=== PATIENT | male | born 1960 | race Caucasian/White ===

== ENCOUNTER 2017-09-23 01:45 | Emergency (ER) | payer OTHER ==
[~2017-09-23] VITALS: Ht 167.6 cm; Wt 102.0 kg
[~2017-09-23 01:45] MED LIST: AMLO5 PO; ASPI81TA82 PO; CLOP75 PO; DOCU1CAP39 PO; FURO1TAB93 PO; GARL1500 PO; JANU100T PO; LOVA10TA PO; METF500 PO; OMEG100037; PACE200T4 PO; PERC5TAB12 PO; POTA20IN3 PO
[2017-09-23 01:47] VITALS: BP 139/79; PULSE 88; RESP 18; TEMP 99.3; O2SAT 98
[2017-09-23] MEDS ORDERED: SODIUM CHLOR 0.9% 1000 ML INJ 1,000 ML IV SCH (02:16)
[2017-09-23] MEDS ORDERED: ONDANSETRON HCL 4 MG/2 ML VIAL IVP ONE (02:30)
[2017-09-23] MEDS ORDERED: SODIUM CHLORIDE 0.9% FLUSH 10 ML FLUSH IV FLUSH PRN (02:30)
[2017-09-23] MEDS ORDERED: FAMOTIDINE 20 MG/2 ML VIAL IV PUSH ONE (02:30)
[2017-09-23 02:49] LABS: AUTOMATED NEUTROPHIL # 6.7 TH/MM3 (1.8-7.7); BASOPHIL % 0.2 % (0.0-2.0); EOSINOPHIL % 0.1 % (0.0-4.0); HEMATOCRIT 29.1 % (39.0-51.0); HEMOGLOBIN 9.7 GM/DL (13.0-17.0); LYMPH % 8.6 % (9.0-44.0); LYMPHOCYTE # 0.7 TH/MM3 (1.0-4.8); MEAN CORPUSCULAR HEMOGLOBIN 26.7 PG (27.0-34.0); MEAN CORPUSCULAR HGB CONC 33.3 % (32.0-36.0); MONO % 8.2 % (0.0-8.0); MONOCYTE # 0.7 TH/MM3 (0-0.9); NEUT % 82.9 % (16.0-70.0); PLATELET COUNT 299 TH/MM3 (150-450); RED BLOOD COUNT 3.64 MIL/MM3 (4.50-5.90); RED CELL DISTRIBUTION WIDTH 15.6 % (11.6-17.2); WHITE BLOOD COUNT 8.1 TH/MM3 (4.0-11.0)
[2017-09-23 02:54] VITALS: RESP 16; O2SAT 98
[2017-09-23 03:01] LABS: ALBUMIN 2.7 GM/DL (3.4-5.0); ALT (GPT) 23 U/L (12-78); AST (GOT) 20 U/L (15-37); BICARBONATE 18.1 MEQ/L (21.0-32.0); BLOOD UREA NITROGEN 9 MG/DL (7-18); CALCIUM 8.9 MG/DL (8.5-10.1); CHLORIDE 96 MEQ/L (98-107); CREATININE 0.65 MG/DL (0.60-1.30); GLOMERULAR FILTRATION RATE 126 ML/MIN (>89); GLUCOSE,RANDOM 114 MG/DL (74-106); LIPASE 217 U/L (73-393); SODIUM (NA) 133 MEQ/L (136-145)
[2017-09-23 03:03] LABS: ALKALINE PHOSPHATASE 110 U/L (45-117); TOTAL PROTEIN 7.6 GM/DL (6.4-8.2)
[2017-09-23] MEDS ORDERED: ALUMINUM/MAGNESIUM/SIMETH 30 ML CUP PO ONE (03:15)
[2017-09-23] MEDS ORDERED: LIDOCAINE VISCOUS 2% SOLN 15 ML UDC PO ONE (03:15)
[2017-09-23 03:34] LABS: AMORPHOUS SEDIMENT, URINE RARE; BILIRUBIN, URINE NEG (NEG); BLOOD, URINE LARGE (NEG); GLUCOSE,URINE NEG (NEG); KETONE, URINE 150 mg/dL (NEG); MUCUS URINE FEW /lpf (OCC); NITRITE,URINE NEG (NEG); PH, URINE 5.5 (5.0-8.5); URINE COLOR RED (YELLW/STRAW); URINE LEUKOCYTE ESTERASE SMALL (NEG)
[2017-09-23 03:50] LABS: TROPONIN I 0.03 NG/ML (0.02-0.05)
[2017-09-23] MEDS ORDERED: LEVOFLOXACIN 750 MG PREMIX INJ 150 ML IV ONE (04:00)
--- NOTE | 2017-09-23 04:08 | RADRPT ---
EXAM DATE/TIME: 09/23/2017 03:34 [facility] COMPARISON: CHEST SINGLE AP, November 28, 2015, 3:25. INDICATIONS : Short of breath. MEDICAL HISTORY : None. SURGICAL HISTORY : CABG. ENCOUNTER: Initial ACUITY: 1 day PAIN SCORE: 4/10 LOCATION: Bilateral chest FINDINGS: A single view of the chest demonstrates the lungs to be symmetrically aerated without evidence of mas s, infiltrate or effusion. Linear scarring within the left base. The cardiomediastinal contours are u nremarkable. Osseous structures are intact. Median sternotomy wires. CONCLUSION: No acute disease. Papi Membreno Jr., MD on September 23, 2017 at 4:06 Board Certified Radiologist. This report was verified electronically.
--- NOTE | 2017-09-23 04:12 | RADRPT ---
EXAM DATE/TIME: 09/23/2017 03:37 [facility] COMPARISON: CT PULMONARY ANGIOGRAM, December 02, 2015, 3:28. INDICATIONS : Hematuria. Evaluate for renal stone. ORAL CONTRAST: No oral contrast ingested. RADIATION DOSE: 18.97 CTDIvol (mGy) MEDICAL HISTORY : Cardiovascular disease. Hyperthyroidism. Renal cell carcinoma. SURGICAL HISTORY : Nephrectomy, left. ENCOUNTER: Initial ACUITY: 1 day PAIN SCALE: 9/10 LOCATION: Bilateral abdomen TECHNIQUE: Volumetric scanning of the abdomen and pelvis was performed. Using automated exposure control and ad justment of the mA and/or kV according to patient size, radiation dose was kept as low as reasonably achievable to obtain optimal diagnostic quality images. DICOM format image data is available electro nically for review and comparison. FINDINGS: LOWER LUNGS: The visualized lower lungs are clear. LIVER: Homogeneous density without lesion. There is no dilation of the biliary tree. No calcified gallston es. SPLEEN: Spleen is enlarged measuring 14.8 cm. There is a area of low density change partially visualized with in the cephalad portion of the spleen measuring 8.6 cm. Both are new from the prior study. PANCREAS: Within normal limits. KIDNEYS: Left kidney is surgically absent. There is compensatory hypertrophy of the right kidney. No mass, sto ne, or hydronephrosis. ADRENAL GLANDS: Within normal limits. VASCULAR: There is no aortic aneurysm. BOWEL/MESENTERY: The stomach, small bowel, and colon demonstrate no acute abnormality. There is no free intraperitone al air or fluid. ABDOMINAL WALL: Within normal limits. RETROPERITONEUM: There is no lymphadenopathy. BLADDER: The urinary bladder is only partially distended. There is circumferential wall thickening observed mo re pronounced within the anterior fundus. REPRODUCTIVE: Within normal limits. INGUINAL: There is no lymphadenopathy or hernia. MUSCULOSKELETAL: There is cortical thickening and mild bony expansion involving the left hemipelvis. No cortical destr uction. Degenerative changes of the lumbar spine. CONCLUSION: 1. Splenomegaly with 8.6 cm low-density lesion involving the spleen. Both are new from the prior exam . 2. Prior left nephrectomy. 3. Paget's disease involving the left hemipelvis. Papi Membreno Jr., MD on September 23, 2017 at 4:06 Board Certified Radiologist. This report was verified electronically.
--- NOTE | 2017-09-23 05:24 | PD ---
HPI . Abdominal pain Chief Complaint: Abdominal Pain Time Seen by Provider: 02:16 Travel History International Travel<30 days: No Contact w/Intl Traveler<30days: No Traveled to known affect area: No History of Present Illness HPI 57-year-old male notes intermittent abdominal pain nausea and vomiting over the past 2 months, presents with having copious vomiting, epigastric abdominal pain. Patient denies any diagnosed previous history of same. Patient notes the initial antecedent may have been food poisoning, has had recurrent viral type infections, including possible influenza during that two-month intermittent coarse. Patient denies any current hematemesis, melena or hematochezia. Patient does note having some darker urine over the past several days. 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 Patient has otherwise been followed by nephrology and has had normal renal function throughout his life. Patient was in to see his PMD within the past month, had a negative workup including lab examinations reviewing patient's renal function and liver function. Patient has no slipping and travel history, no idiosyncratic food intake, has not had any ingestion of stream or catchment water has not had any antibiotic usage, has not had any visitation of anyone in a hospital or correction setting PFSH Past Medical History Narrative Medical Past medical history reviewed Cancer: Yes (kidney) Cardiovascular Problems: Yes (AORTIC SURGERY) Chest Pain: No Diabetes: Yes Patient Takes Glucophage: No (09/22/2017 0900) Diminished Hearing: No Endocrine: No Gastrointestinal Disorders: No Genitourinary: Yes (hx of wilms tumor disease) Hepatitis: No Hiatal Hernia: No Hypertension: Yes Immune Disorder: No Medical other: Yes ("paracite") Musculoskeletal: Yes (cervical compression with numbness and tingling left arm arthritis) Neurologic: No Psychiatric: No Reproductive: No Respiratory: No Thyroid Disease: No Tetanus Vaccination: Unknown Influenza Vaccination: No Past Surgical History AICD: No Cardiac Surgery: Yes (cardiac cath aug 2015) Genitourinary Surgery: Yes (left nephrectomy) Joint Replacement: No Oral Surgery: Yes (t and a) Pacemaker: No Tonsillectomy: Yes (T&A) Other Surgery: Yes Social History Alcohol Use: Yes (beer daily) Tobacco Use: No Substance Use: No Allergies-Medications (Allergen,Severity, Reaction): Coded Allergies: Penicillins (Verified Allergy, Severe, 09/23/17) pt states "I almost as a child" ibuprofen (Unverified Allergy, Severe, kidney disease only one kidney, ) sulfacetamide (Verified Allergy, Unknown, 09/23/17) pt states "I don't know it happened as a child" Reported Meds & Prescriptions Reported Meds & Active Scripts Active Percocet 5-325 mg (Oxycodone/Acetaminophen) Oxycodone 5/325 Acetaminophen Tab 1 Tab PO Q4-6H PRN Pacerone 200 mg (Amiodarone HCl) 200 Mg Tab 2 Tab PO BID Potassium Chloride CR 20 meq 20 Meq Tab 1 Tab PO BID take one pill twice a day with lasix x 2 weeks, then daily with lasix, until prescrition completed Lasix (Furosemide) 40 Mg Tab 40 Mg PO BID take lasix 40mg twice a day for 2 weeks, then take one tab daily until prescrition completed must also take with potassium Colace 100 Mg Cap (Docusate Sodium) 100 Mg Cap 100 Mg PO DAILY Plavix (Clopidogrel Bisulfate) 75 Mg Tab 75 Mg PO DAILY Norvasc (Amlodipine Besylate) 5 Mg Tab 5 Mg PO DAILY Reported Glucophage 500 mg (Metformin HCl) 500 Mg Tab 500 Mg PO TID Lovastatin 10 Mg Tab 10 Mg PO BID Januvia (Sitagliptin Phosphate) 100 Mg Tab 100 Mg PO DAILY Garlic 1,500 Mg Cap 1,500 Mg PO stopped 10/15/15 Fish Oil 1000 mg ([place]-3 Fatty Acids) 1 Cap Cap stopped 10/15/15 Aspir-81 (Aspirin) 81 Mg Tab 81 Mg PO DAILY stopped oct 15 Narrative Medication Allergies and medications reviewed Review of Systems Except as stated in HPI: all other systems reviewed are Neg General / Constitutional: No: Fever Eyes: No: Visual changes HENT: No: Headaches Cardiovascular: No: Chest Pain or Discomfort Respiratory: No: Shortness of Breath Gastrointestinal: Positive: Nausea, Vomiting, Abdominal Pain, No: Diarrhea, Hematemesis, Hematochezia Genitourinary: No: Dysuria Musculoskeletal: No: Pain Skin: No Rash Neurologic: No: Weakness Psychiatric: No: Depression Endocrine: No: Polydipsia Hematologic/Lymphatic: No: Easy Bruising Physical Exam Narrative GENERAL: Patient is awake and alert, actively vomiting at presentation, in mild distress and uncomfortable SKIN: Warm and dry. Color is slightly pale/sallow, no diaphoresis no cyanosis HEAD: Atraumatic. Normocephalic. EYES: Pupils equal and round. No scleral icterus. No injection or drainage. EOMI ENT: No nasal bleeding or discharge. Mucous membranes pink and moist. Uvula midline no lesions voice normal NECK: Trachea midline. No JVD. Supple full range of motion CARDIOVASCULAR: Regular rate and rhythm. S1-S2 no murmurs or gallops RESPIRATORY: No accessory muscle use. Clear to auscultation. Breath sounds equal bilaterally. GASTROINTESTINAL: Abdomen soft, non-tender, nondistended. Hepatic and splenic margins not palpable. MUSCULOSKELETAL: Extremities without clubbing, cyanosis, or edema. No obvious deformities. NEUROLOGICAL: Awake and alert. No obvious cranial nerve deficits. Motor grossly within normal limits. Five out of 5 muscle strength in the arms and legs. Normal speech. PSYCHIATRIC: Appropriate mood and affect; insight and judgment normal. Data Data Last Documented VS Vital Signs Date Time Temp Pulse Resp B/P (MAP) Pulse Ox O2 Delivery O2 Flow Rate FiO2 09/23/17 02:54 16 98 Nasal Cannula 09/23/17 01:47 99.3 88 Orders Orders Complete Blood Count With Diff (09/23/17 02:16) Comprehensive Metabolic Panel (09/23/17 02:16) Lipase (09/23/17 02:16) Urinalysis - C+S If Indicated (09/23/17 02:16) Iv Access Insert/Monitor (09/23/17 02:16) Ecg Monitoring (09/23/17 02:16) Oximetry (09/23/17 02:16) Ondansetron Inj (Zofran Inj) (09/23/17 02:30) Sodium Chlor 0.9% 1000 Ml Inj (Ns 1000 M (09/23/17 02:16) Sodium Chloride 0.9% Flush (Ns Flush) (09/23/17 02:30) Electrocardiogram (09/23/17 02:16) Famotidine Inj (Pepcid Inj) (09/23/17 02:30) Al-Mag Hy-Si 40-40-4 Mg/Ml Liq (Mag-Al P (09/23/17 03:15) Lidocaine 2% Viscous (Xylocaine 2% Visco (09/23/17 03:15) Chest, Single Ap (09/23/17 ) Ct Abd/Pel W/O Iv Contrast (09/23/17 ) Troponin I (09/23/17 02:30) Urine Culture (09/23/17 03:05) Levofloxacin 750 Mg Premix Inj (Levaquin (09/23/17 04:00) Drug Screen, Random Urine (09/23/17 05:24) Labs Laboratory Tests Test 09/23/17 02:30 09/23/17 03:05 White Blood Count 8.1 TH/MM3 Red Blood Count 3.64 MIL/MM3 Hemoglobin 9.7 GM/DL Hematocrit 29.1 % Mean Corpuscular Volume 80.0 FL Mean Corpuscular Hemoglobin 26.7 PG Mean Corpuscular Hemoglobin Concent 33.3 % Red Cell Distribution Width 15.6 % Platelet Count 299 TH/MM3 Mean Platelet Volume 7.0 FL Neutrophils (%) (Auto) 82.9 % Lymphocytes (%) (Auto) 8.6 % Monocytes (%) (Auto) 8.2 % Eosinophils (%) (Auto) 0.1 % Basophils (%) (Auto) 0.2 % Neutrophils # (Auto) 6.7 TH/MM3 Lymphocytes # (Auto) 0.7 TH/MM3 Monocytes # (Auto) 0.7 TH/MM3 Eosinophils # (Auto) 0.0 TH/MM3 Basophils # (Auto) 0.0 TH/MM3 CBC Comment DIFF FINAL Differential Comment Blood Urea Nitrogen 9 MG/DL Creatinine 0.65 MG/DL Random Glucose 114 MG/DL Total Protein 7.6 GM/DL Albumin 2.7 GM/DL Calcium Level 8.9 MG/DL Alkaline Phosphatase 110 U/L Aspartate Amino Transf (AST/SGOT) 20 U/L Alanine Aminotransferase (ALT/SGPT) 23 U/L Total Bilirubin 1.0 MG/DL Sodium Level 133 MEQ/L Potassium Level 3.5 MEQ/L Chloride Level 96 MEQ/L Carbon Dioxide Level 18.1 MEQ/L Anion Gap 19 MEQ/L Estimat Glomerular Filtration Rate 126 ML/MIN Troponin I 0.03 NG/ML Lipase 217 U/L Urine Color RED Urine Turbidity HAZY Urine pH 5.5 Urine Specific [place] 1.022 Urine Protein 100 mg/dL Urine Glucose (UA) NEG mg/dL Urine Ketones 150 mg/dL Urine Occult Blood LARGE Urine Nitrite NEG Urine Bilirubin NEG Urine Urobilinogen LESS THAN 2.0 MG/DL Urine Leukocyte Esterase SMALL Urine RBC /hpf Urine WBC 12 /hpf Urine Amorphous Sediment RARE Urine Mucus FEW /lpf Microscopic Urinalysis Comment CULTURE INDICATED MDM Medical Decision Making Medical Screen Exam Complete: Yes Emergency Medical Condition: Yes Medical Record Reviewed: Yes Differential Diagnosis Gastritis, reflux esophagitis, pancreatitis, choledocholithiasis, biliary colic , duodenitis Narrative Course Patient given antiemetics, H2 blockers at presentation. Patient began tolerating by mouth, was given Maalox with lidocaine mixture orally and had subsequent relief of pain. Patient repeat exam is notable for having mild epigastric tenderness with voluntary guarding. Considering patient's prolonged course, and notation of dark urine possibly bilious, CT abdomen and pelvis performed. No obvious intra-abdominal lesions or acute process process noted. All laboratory examinations reviewed, is elevated UTI otherwise no significant abnormalities. Renal function liver function normal. Patient resting comfortably. Suggest prolonged course of H2 blockers/proton pump inhibitors, as well as Carafate orally. Follow-up with GI. Recommend endoscopy Diagnosis Primary Impression: Gastritis Qualified Codes: K29.70 - Gastritis, unspecified, without bleeding Additional Impression: Urinary tract infection Qualified Codes: N39.0 - Urinary tract infection, site not specified Patient Instructions: Gastritis (ED), General Instructions, Urinary Tract Infection in Men (DC) Additional Instructions: Protonix 40 mg daily. Carafate 1 g after meals and before bedtime 4 times daily total. Follow-up with your doctor, recommend gastroenterology referral for endoscopy. Stay well hydrated. Return for worsening. Scripts Sucralfate (Carafate) 1 Gram Tab 1 GM PO QID for Ulcer Prevention, #120 TAB 0 Refills On empty stomach Prov: Tanner Jefferson MD 09/23/17 Pantoprazole (Protonix) 40 Mg Tab 40 MG PO DAILY for Ulcer Prevention, #30 TAB 0 Refills Prov: Tanner Jefferson MD 09/23/17 Disposition: DISCHARGE HOME Condition: Stable Tanner Jefferson MD Sep 23, 2017 05:24
[2017-09-23] MEDS ORDERED: CARA1TAB6 PO (05:42)
[2017-09-23] MEDS ORDERED: PROT40TA PO (05:42)
--- NOTE | 2017-09-23 09:38 | EKG ---
Date Performed: 09/23/2017 Time Performed: 03:14:51 PTAGE: 57 years EKG: Sinus rhythm POSSIBLE RIGHT VENTRICULAR CONDUCTION DELAY NONSPECIFIC T-WAVE ABNORMALITY BORDERLINE ECG NO PREVIOUS TRACING DOCTOR: Naun Gilbert Interpretating Date/Time 09/23/2017 09:38:50
== END 2017-09-23 06:24 | disposition home or self-care (01) ==
LOC: NEPC 01:45
DX: K29.70 Gastritis, unspecified, without bleeding (principal); N39.0 Urinary tract infection, site not specified; M88.9 Osteitis deformans of unspecified bone; I10 Essential (primary) hypertension; I25.10 Atherosclerotic heart disease of native coronary artery without angina pectoris; E11.9 Type 2 diabetes mellitus without complications; E05.90 Thyrotoxicosis, unspecified without thyrotoxic crisis or storm; R94.31 Abnormal electrocardiogram [ECG] [EKG]; Z90.5 Acquired absence of kidney; Z85.528 Personal history of other malignant neoplasm of kidney; Z95.1 Presence of aortocoronary bypass graft; Z88.0 Allergy status to penicillin; Z88.6 Allergy status to analgesic agent; Z79.84 Long term (current) use of oral hypoglycemic drugs; Z79.82 Long term (current) use of aspirin; Z79.899 Other long term (current) drug therapy
CPT/HCPCS: 71045; 74176; 80053; 80307; 81001; 83690; 84484; 85025; 87086; 93005; 96374; 96375; 99285; J1956; J2405; J7030